=== PATIENT | female | born 1990 | race Hispanic/Latino ===

== ENCOUNTER 2023-06-19 15:27 | Emergency (ER) | payer SELFPAY ==
[~2023-06-19] VITALS: Ht 170.2 cm; Wt 124.7 kg
[~2023-06-19 15:27] MED LIST: AMOX TR-K CLV1 EAC2 PO
[2023-06-19] MEDS ORDERED: CLEOCIN HCL300 MG PO (16:06)
[2023-06-19] MEDS ORDERED: AMOX TR-K CLV1 EAC2 PO (16:07)
[2023-06-19] MEDS ORDERED: PREDNISONE20 MG PO (16:10)
[2023-06-19 16:29] VITALS: BP 128/75; PULSE 88; RESP 16; O2SAT 100
== END 2023-06-19 16:26 | disposition home or self-care (01) ==
LOC: ER 15:48
DX: G51.0 Bell's palsy (principal)
CPT/HCPCS: 99283